=== PATIENT | female | born 1985 | race Caucasian/White ===

== ENCOUNTER 2022-04-21 12:39 | Outpatient (CLI) | payer OTHER, SELFPAY ==
--- NOTE | 2022-04-21 21:18 | P.PCNPFT_ITS ---
PFT Procedure Performed PFT Procedure Performed Spirometry with Pre/Post Bronchodilator Plethysmography (Lung Vol) Diffusing Cap (DLCO) Flow Vol Loop PFT Interpretation DOS: 04/21/2022 REQUESTING: Terri Lester [facility] REASON FOR TESTING: asthma PULMONARY FUNCTION TESTS Results are reliable and reproducible. Spirometry: Pre-bronchodilator FEV1 2.79 L, 94%, normal. Pre-bronchodilator FVC 3.76 L, 105%, normal. FEV1/FVC ratio 74% normal. After bronchodilator, there is a 9% increase, FEV1 is 3.03, 102% predicted. After bronchodilator FVC increases 1%, 106%. These are not statistically significant increases. The [id number]% pre-bronchodilator He is 2.14 L, 67% predicted, low end of normal. After bronchodilator this increases to 2.88 L, 90% predicted. This is a 34% increase. Lung volumes: Total lung capacity is 5.04 L, 103% predicted, normal. Residual volume is 1.28 L, 88% predicted, normal. RV/TLC is 25% predicted, normal. Airway resistance 2.47 cmH20/L/sec, 143% predicted, elevated. Diffusion: DLCO 20.1, 85% predicted. DLCO /VA is 4.0, 83% predicted. Flow volume loop: Normal. IMPRESSION: This study shows normal spirometry, lung volumes and diffusion. There is not a statistically significant increase in FEV1 or FVC after bronchodilator, however the small airways flows increase 34%, and this can be seen in asthma. Lack of response to bronchodilator should not preclude use if clinically indicated. Kaylee Telles MD
== END 2022-04-21 12:40 | disposition home or self-care (01) ==
LOC: ANHPFT 12:40
PROVIDERS: PCP Nurse Practitioner; Visit Provider Nurse Practitioner
DX: J45.909 Unspecified asthma, uncomplicated (principal)
CPT/HCPCS: 94060; 94726; 94729

== ENCOUNTER 2022-05-31 08:23 | Outpatient (CLI) | payer OTHER, SELFPAY | END 2022-05-31 08:24 | disposition home or self-care (01) | LOC: ANHPFT 08:24 | PROVIDERS: PCP Nurse Practitioner; Visit Provider Nurse Practitioner | DX: J45.909 Unspecified asthma, uncomplicated (principal) | CPT/HCPCS: 99199; J7674 ==

== ENCOUNTER 2022-06-17 08:18 | Outpatient (CLI) | payer OTHER, SELFPAY ==
--- NOTE | 2022-06-18 10:52 | WPDMETH ---
Methacholine Procedure Perform Procedure Performed Methacholine Challenge Methacholine Challenge Methacholine Challenge: Methacholine challenge was performed with quadrupling increases of nebulized methacholine according to the 5-step dosimeter protocol by the ATS /ERS 2017 guidelines. Following administration of 116.10 mcg of methacholine at step 4, the measured FEV1 decreased by approximately 22% from the baseline measurement. Post administration of a nebulized short-acting bronchodilator, the FEV1 returned back to near baseline level. Impression: Positive methacholine challenge testing. Borderline airway hyperresponsiveness.
== END 2022-06-17 08:19 | disposition home or self-care (01) ==
LOC: ANHPFT 08:19
PROVIDERS: PCP Nurse Practitioner; Visit Provider Nurse Practitioner
DX: J45.909 Unspecified asthma, uncomplicated (principal)
CPT/HCPCS: 94070; J7674